=== PATIENT | female | born 1945 | race Caucasian/White ===

== ENCOUNTER 2017-04-05 05:54 | Inpatient (IN) | payer MEDICARE, OTHER ==
[~2017-04-05] VITALS: Ht 175.3 cm; Wt 84.3 kg
[~2017-04-05 05:54] MED LIST: BIOTIN PO; BISA10SU2 PR; CHOL500015 PO; CRANBERRY PO; ESTR0.5T PO; GABA-826 PO; HYDR-3245 PO; METH750T2 PO; MULT-516 PO; NAPR500T4 PO; OMEG1CAP39 PO; SENN1TAB7 PO; SLEEP AID PO; TURM500C7 PO; VITAMIN B12 PO
[2017-04-05] MEDS ORDERED: LACTATED RINGERS 1,000 ML IV SCH (07:18)
[2017-04-05] MEDS ORDERED: SODIUM CHLORIDE 0.9% 50 ML ONE (07:38)
[2017-04-05] MEDS ORDERED: ROPIvacaine/PF 0.2%, 20 ML ONE (07:38)
[2017-04-05] MEDS ORDERED: KETOROLAC 60 MG/2 ML ONE (07:38)
[2017-04-05] MEDS ORDERED: TRANEXAMIC ACID 100 MG/ML, 10ML ONE (07:38)
[2017-04-05] MEDS ORDERED: EPINEPHRINE 1 MG/ML, 1ML ONE (07:38)
[2017-04-05] MEDS ORDERED: ACETAMINOPHEN 500 MG TABLET ONE (07:42)
[2017-04-05] MEDS ORDERED: SCOPOLAMINE 1MG PATCH TD ONE (07:42)
[2017-04-05 07:50] VITALS: BP 123/78
[2017-04-05] MEDS ORDERED: FENTANYL PF 100 MCG/2ML ONE ×3 (07:50→10:00)
[2017-04-05] MEDS ORDERED: KETAMINE 10 MG/ML, 20ML ONE (07:50)
[2017-04-05] MEDS ORDERED: MIDAZOLAM 1 MG/ML, 2ML ONE (07:50)
[2017-04-05] MEDS ORDERED: SUCCINYLCHOLINE 20 MG/ML, 10ML ONE (08:03)
[2017-04-05] MEDS ORDERED: ROCURONIUM 10 MG/ML ONE (08:03)
[2017-04-05] MEDS ORDERED: ONDANSETRON 2MG/ML, 2ML ONE (08:03)
[2017-04-05] MEDS ORDERED: CEFAZOLIN 1,000 MG ONE (08:03)
[2017-04-05] MEDS ORDERED: NEOSTIGMINE 1 MG/ML, 10ML ONE (08:03)
[2017-04-05] MEDS ORDERED: GLYCOPYRROLATE 0.2MG/1ML, 5ML ONE (08:03)
[2017-04-05] MEDS ORDERED: DEXAMETHASONE 4 MG/ML, 5ML ONE (08:03)
[2017-04-05] MEDS ORDERED: LIDOCAINE-MPF 2% ,5ML ONE (08:40)
[2017-04-05] MEDS ORDERED: PROPOFOL 10 MG/ML, 20ML ONE (08:40)
[2017-04-05] MEDS ORDERED: PROMETHAZINE 25 MG/ML, 1ML IV PRN (09:00)
[2017-04-05] MEDS ORDERED: DIAZEPAM 5 MG/ML, 2ML IVPush PRN (09:00)
[2017-04-05] MEDS ORDERED: MEPERIDINE/PF 25MG/0.5ML IVPush PRN (09:00)
[2017-04-05] MEDS ORDERED: OXYcodone 5 MG/5 ML ORAL.SOL UDC PO PRN (09:00)
[2017-04-05] MEDS: D5%-0.45% NACL 1,000 ML IV SCH ×2 (09:38→16:37)
[2017-04-05] MEDS ORDERED: MAGNESIUM HYDROXIDE 8%, 30ML UDC PO PRN (10:00)
[2017-04-05] MEDS ORDERED: ACETAMINOPHEN 650 MG/20.3 ML UDC PO SCH (10:00)
[2017-04-05] MEDS ORDERED: PROMETHAZINE 25 MG/ML, 1ML IM PRN (10:00)
[2017-04-05] MEDS ORDERED: HYDROmorphone 1 MG/ML, 1ML IV PRN (10:00)
[2017-04-05] MEDS ORDERED: ONDANSETRON 2MG/ML, 2ML IV PRN (10:00)
[2017-04-05] MEDS ORDERED: ALUMINUM/MAG/SIMETHICONE 30 ML UDC PO PRN (10:00)
[2017-04-05] MEDS ORDERED: OXYcodone IR 5MG TABLET PO PRN (10:00)
[2017-04-05] MEDS ORDERED: SENNA/DOCUSATE TABLET PO PRN (10:00)
[2017-04-05] MEDS ORDERED: DIPHENHYDRAMINE 50 MG CAPSULE PO PRN (10:00)
[2017-04-05] MEDS ORDERED: DIAZEPAM 5 MG TABLET PO PRN (10:00)
[2017-04-05] MEDS: OXYcodone IR 5MG TABLET PO SCH ×3 (10:00→22:29)
[2017-04-05] MEDS ORDERED: BISACODYL 10 MG SUPP PR PRN (10:00)
[2017-04-05] MEDS ORDERED: PROMETHAZINE 12.5 MG SUPP PR PRN (10:00)
[2017-04-05] MEDS ORDERED: ZOLPIDEM 5MG TABLET PO PRN (10:00)
[2017-04-05] MEDS ORDERED: ONDANSETRON 4 MG TABLET PO PRN (10:00)
[2017-04-05] MEDS ORDERED: OXYcodone 5 MG/5 ML ORAL.SOL UDC ONE (10:01)
[2017-04-05] MEDS ORDERED: HYDROmorphone 1 MG/ML, 1ML ONE (10:01)
[2017-04-05] MEDS: FENTANYL PF 100 MCG/2ML IV PRN ×2 (10:11→10:24)
[2017-04-05] MEDS ORDERED: TRANEXAMIC ACID 1,000 MG in SODIUM CHLORIDE 0.9% 100 ML IVPB ONE (10:15)
[2017-04-05] MEDS: HYDROmorphone 1 MG/ML, 1ML IV PRN ×2 (10:27→10:40)
[2017-04-05] MEDS: TAMSULOSIN 0.4 MG CAP.ER.24H PO SCH (12:43)
[2017-04-05 13:49] VITALS: BP 140/66
[2017-04-05] MEDS: GABAPENTIN 300 MG CAPSULE PO SCH (16:36)
[2017-04-05] MEDS: CEFAZOLIN PMX 2GM/50ML 50 ML IVPB SCH (16:37)
[2017-04-05] MEDS: ASPIRIN 81 MG TABLET EC PO SCH (18:02)
[2017-04-05] MEDS: ACETAMINOPHEN 500 MG TABLET PO SCH (18:06)
[2017-04-05 20:00] VITALS: BP 124/64
[2017-04-05] MEDS: DOCUSATE 100 MG CAPSULE PO SCH (22:29)
[2017-04-06 00:01] VITALS: BP 100/61
[2017-04-06] MEDS: CEFAZOLIN PMX 2GM/50ML 50 ML IVPB SCH (00:23)
[2017-04-06] MEDS: GABAPENTIN 300 MG CAPSULE PO SCH ×2 (00:23→07:39)
[2017-04-06] MEDS: D5%-0.45% NACL 1,000 ML IV SCH (01:39)
[2017-04-06] MEDS: ACETAMINOPHEN 500 MG TABLET PO SCH ×2 (02:18→10:23)
[2017-04-06] MEDS: OXYcodone IR 5MG TABLET PO SCH ×4 (02:18→11:13)
[2017-04-06 03:21] VITALS: BP 95/58
[2017-04-06 05:09] LABS: HEMATOCRIT 36.4 % (34.6-47.8); HEMOGLOBIN 12.2 g/dL (11.7-16.4)
[2017-04-06] MEDS: ASPIRIN 81 MG TABLET EC PO SCH (05:43)
[2017-04-06] MEDS ORDERED: DEXAMETHASONE 4 MG/ML, 1ML IVPush SCH (06:00)
[2017-04-06 06:56] VITALS: BP 95/55
[2017-04-06] MEDS: TAMSULOSIN 0.4 MG CAP.ER.24H PO SCH (07:39)
[2017-04-06] MEDS: DOCUSATE 100 MG CAPSULE PO SCH (07:39)
[2017-04-06] MEDS ORDERED: MULTIVITAMINS/MINERALS TABLET PO SCH (09:00)
[2017-04-06] MEDS ORDERED: KETOROLAC 30 MG/1 ML IV SCH (10:00)
[2017-04-06] MEDS ORDERED: OXYC5CAP2 PO (10:19)
== END 2017-04-06 13:20 | disposition home or self-care (01) | DRG 470 ==
LOC: ORIP 05:54 → 4NOR 11:25 → DCLOUNGE 04-06 13:10
PROVIDERS: ADMIT Orthopaedic Surgery; ATTEND Orthopaedic Surgery
PROC: 0SRB0JZ Replacement of Left Hip Joint with Synthetic Substitute, Open Approach (ICD-10-PCS; principal; 2017-04-05 08:00)
DX: M16.12 Unilateral primary osteoarthritis, left hip (principal); M51.36 Other intervertebral disc degeneration, lumbar region
CPT/HCPCS: 36415; 72170; 85014; 85018; 86850; 86900; C1713; J0171; J0690; J1100; J1170; J1885; J2250; J2405; J2704; J2710; J2795; J3010; J3490; C1776; J0330; J7120

== ENCOUNTER → 2017-06-03 | Outpatient (CLI) | payer MEDICARE ==
[~2017-06-03] MED LIST changes: +OXYC5CAP2 PO
[2017-06-03 15:49] LABS: BASOPHILS # (AUTO) 0.02 x10^3/uL (0-0.1); BASOPHILS % (AUTO) 0 % (0-1); EOSINOPHILS # (AUTO) 0.25 x10^3/uL (0-0.4); EOSINOPHILS % (AUTO) 4 % (1-7); LYMPHOCYTES # (AUTO) 2.25 x10^3/uL (1-3.4); LYMPHOCYTES % (AUTO) 36 % (22-44); MD NO; MEAN CORPUSCULAR HEMOGLOBIN 31.7 pg (27.0-34.8); MEAN CORPUSCULAR HGB CONC 33.1 g/dL (32.4-35.8); MEAN CORPUSCULAR VOLUME 95.8 fL (80-100); MEAN PLATELET VOLUME 8.4 fL (7.4-10.4); MONOCYTES # (AUTO) 0.55 x10^3/uL (0.2-0.8); MONOCYTES % (AUTO) 9 % (2-9); NEUTROPHILS % (AUTO) 51 % (42-75); PLATELET COUNT 265 x10^3/uL (130-400); RED BLOOD COUNT 4.64 x10^6/uL (3.82-5.3); RED CELL DISTRIBUTION WIDTH 14.4 % (9.6-15.2)
[2017-06-03 15:54] LABS: ALANINE AMINOTRANSFERASE 32 U/L (12-78); ALBUMIN 4.2 g/dL (3.4-5.0); CHLORIDE 107 mmol/L (98-107)
[2017-06-03 16:19] LABS: ALKALINE PHOSPHATASE 117 U/L (45-117); ANION GAP 7 mmol/L (5-15); BILIRUBIN,TOTAL 0.3 mg/dL (0.2-1.0); CALCIUM 8.9 mg/dL (8.5-10.1); CREATININE 0.72 mg/dL (0.55-1.02); T4 (THYROXINE) 6.7 mcg/dL (4.8-13.9); TOTAL PROTEIN 7.5 g/dL (6.4-8.2)
[2017-06-03 16:22] LABS: FOLATE LEVEL > 20.0 ng/mL (3.1-17.5)
== END | disposition home or self-care (01) ==
LOC: CFH 14:08
PROVIDERS: ATTEND Psychiatry & Neurology Neurology
DX: N88.8 Other specified noninflammatory disorders of cervix uteri (principal); G57.82 Other specified mononeuropathies of left lower limb; G62.89 Other specified polyneuropathies; Z96.643 Presence of artificial hip joint, bilateral
CPT/HCPCS: 36415; 72170; 72195; 80053; 82607; 82746; 84436; 84481; 85025

== ENCOUNTER 2017-11-28 16:04 | Emergency (ER) | payer MEDICARE ==
[~2017-11-28] VITALS: Ht 175.3 cm; Wt 78.6 kg
[~2017-11-28 16:04] MED LIST changes: +NAPR-685 PO; -NAPR500T4 PO
[2017-11-28 16:14] VITALS: BP 126/79
[2017-11-28] MEDS ORDERED: FAMOTIDINE 20 MG/2 ML ONE (16:57)
[2017-11-28] MEDS ORDERED: PROCHLORPERAZINE 5 MG/ML, 2ML ONE (16:57)
[2017-11-28] MEDS ORDERED: SODIUM CHLORIDE 0.9% 1,000ML IVBOLUS ONE (17:00)
[2017-11-28] MEDS ORDERED: FAMOTIDINE 20 MG/2 ML IVP ONE (17:00)
[2017-11-28] MEDS ORDERED: PROCHLORPERAZINE 5 MG/ML, 2ML IVPush ONE (17:00)
[2017-11-28] MEDS ORDERED: SODIUM CHLORIDE FLUSH 10ML SYR IVF ONE (17:00)
[2017-11-28 17:01] LABS: BASOPHILS # (AUTO) 0.02 x10^3/uL (0-0.1); BASOPHILS % (AUTO) 0 % (0-1); EOSINOPHILS # (AUTO) 0.02 x10^3/uL (0-0.4); EOSINOPHILS % (AUTO) 0 % (1-7); INTERNATIONAL NORMALIZED RATIO 0.96 (0.93-1.1); LYMPHOCYTES # (AUTO) 1.03 x10^3/uL (1-3.4); LYMPHOCYTES % (AUTO) 9 % (22-44); MD NO; MEAN CORPUSCULAR HEMOGLOBIN 32.3 pg (27.0-34.8); MEAN CORPUSCULAR HGB CONC 33.8 g/dL (32.4-35.8); MEAN CORPUSCULAR VOLUME 95.7 fL (80-100); MEAN PLATELET VOLUME 9.1 fL (7.4-10.4); MONOCYTES # (AUTO) 0.58 x10^3/uL (0.2-0.8); MONOCYTES % (AUTO) 5 % (2-9); NEUTROPHILS # (AUTO) 9.89 x10^3/uL (1.8-6.8); NEUTROPHILS % (AUTO) 86 % (42-75); PLATELET COUNT 265 x10^3/uL (130-400); RED BLOOD COUNT 4.53 x10^6/uL (3.82-5.3); RED CELL DISTRIBUTION WIDTH 13.2 % (9.6-15.2)
[2017-11-28 17:04] LABS: ALANINE AMINOTRANSFERASE 46 U/L (12-78); ALBUMIN 3.8 g/dL (3.4-5.0); ANION GAP 7 mmol/L (5-15); CALCIUM 8.4 mg/dL (8.5-10.1); CHLORIDE 105 mmol/L (98-107); CREATININE 0.78 mg/dL (0.55-1.02)
[2017-11-28 17:06] LABS: ALKALINE PHOSPHATASE 122 U/L (45-117); BILIRUBIN,TOTAL 0.8 mg/dL (0.2-1.0); TOTAL PROTEIN 6.9 g/dL (6.4-8.2)
[2017-11-28] MEDS ORDERED: ONDANSETRON 2MG/ML, 2ML ONE (17:21)
[2017-11-28] MEDS ORDERED: ONDANSETRON 2MG/ML, 2ML IVPush ONE (18:00)
[2017-11-28 18:01] LABS: TROPONIN I < 0.015 ng/mL (0.000-0.045)
== END 2017-11-28 19:18 | disposition home or self-care (01) ==
LOC: ED 18:01
DX: K80.20 Calculus of gallbladder without cholecystitis without obstruction (principal)
CPT/HCPCS: 36415; 71045; 76700; 80053; 83690; 84484; 85025; 85610; 85730; 93005; 96361; 96374; 96375; 99285; J2405; J7030; S0028

== ENCOUNTER → 2017-12-09 | Outpatient (CLI) | payer MEDICARE ==
[~2017-12-09] MED LIST changes: +CARB-139 PO; +GLUC-149 PO; +NAPR500T8 PO; +ONDA4TAB13 SL; +PROG100C16 PO; +SUPER C COMPLEX PO; +TURMERIC/CURCUMIN PO; +VITA150T PO
[2017-12-09 13:36] LABS: MICROSCOPIC NOT IND
[2017-12-09 13:38] LABS: CULTURE INDICATED? NO
== END | disposition home or self-care (01) ==
LOC: STAR 12:38
PROVIDERS: ATTEND Surgery
DX: Z01.818 Encounter for other preprocedural examination (principal); R00.1 Bradycardia, unspecified
CPT/HCPCS: 81003; 93005

== ENCOUNTER 2017-12-13 05:59 | Day surgery (SDC) | payer MEDICARE ==
[~2017-12-13] VITALS: Ht 176.5 cm; Wt 76.3 kg
[2017-12-13] MEDS ORDERED: BUPIVACAINE/PF-EPI 0.5% 1:200K ONE (06:22)
[2017-12-13] MEDS ORDERED: LACTATED RINGERS 1,000 ML IV SCH (06:36)
[2017-12-13 06:42] VITALS: BP 122/87
[2017-12-13] MEDS ORDERED: LIDOCAINE-MPF 1%, 2ML INFIL ONE (07:00)
[2017-12-13] MEDS ORDERED: MIDAZOLAM 1 MG/ML, 2ML ONE (07:01)
[2017-12-13] MEDS ORDERED: FENTANYL PF 100 MCG/2ML ONE ×2 (07:01→08:40)
[2017-12-13] MEDS ORDERED: ACETAMINOPHEN 500 MG TABLET ONE (07:13)
[2017-12-13] MEDS ORDERED: SCOPOLAMINE PATCH, 1.5MG PATCH.TD72 TD ONE (07:13)
[2017-12-13] MEDS ORDERED: GABAPENTIN 300 MG CAPSULE ONE (07:13)
[2017-12-13] MEDS ORDERED: CEFAZOLIN 1,000 MG ONE (07:19)
[2017-12-13] MEDS ORDERED: ONDANSETRON 2MG/ML, 2ML ONE ×2 (07:19→18:41)
[2017-12-13] MEDS ORDERED: ROCURONIUM 10 MG/ML,10ML ONE (07:19)
[2017-12-13] MEDS ORDERED: DEXAMETHASONE 4 MG/ML, 1ML ONE (07:19)
[2017-12-13] MEDS ORDERED: PROPOFOL 10 MG/ML, 20ML ONE (07:19)
[2017-12-13] MEDS ORDERED: SUCCINYLCHOLINE 20 MG/ML, 10ML ONE (07:19)
[2017-12-13] MEDS ORDERED: hydrALAzine 20 MG/ML, 1ML IV PRN (08:00)
[2017-12-13] MEDS ORDERED: OXYcodone 5 MG/5 ML ORAL.SOL UDC PO PRN (08:00)
[2017-12-13] MEDS ORDERED: PROMETHAZINE 25 MG/ML, 1ML IV PRN (08:00)
[2017-12-13] MEDS ORDERED: HALOPERIDOL 5 MG/ML IV PRN (08:00)
[2017-12-13] MEDS ORDERED: MEPERIDINE/PF 25MG/0.5ML IVPush PRN (08:00)
[2017-12-13] MEDS ORDERED: ALBUTEROL SULFATE 2.5 MG/3 ML NPPB PRN (08:00)
[2017-12-13] MEDS ORDERED: LABETALOL 5MG/ML, 20ML IV PRN (08:00)
[2017-12-13] MEDS ORDERED: HYDROmorphone 1 MG/ML, 1ML IV PRN (08:00)
[2017-12-13] MEDS ORDERED: LORazepam 2 MG/ML, 1ML IVPush PRN (08:00)
[2017-12-13] MEDS ORDERED: OXYcodone 5 MG/5 ML ORAL.SOL UDC ONE (08:40)
[2017-12-13] MEDS: FENTANYL PF 100 MCG/2ML IV PRN ×4 (08:45→09:20)
[2017-12-13] MEDS ORDERED: LORazepam 2 MG/ML, 1ML ONE (09:07)
[2017-12-13] MEDS ORDERED: MEPERIDINE/PF 50 MG/ML ONE (09:33)
[2017-12-13] MEDS ORDERED: ONDANSETRON 2MG/ML, 2ML IVPush PRN (19:00)
== END 2017-12-13 19:10 | disposition home or self-care (01) ==
LOC: OUT 05:59
PROVIDERS: ATTEND Surgery
DX: K80.10 Calculus of gallbladder with chronic cholecystitis without obstruction (principal); Z87.39 Personal history of other diseases of the musculoskeletal system and connective tissue; Z98.890 Other specified postprocedural states; Z72.89 Other problems related to lifestyle
CPT/HCPCS: 47562; 88304; C1760; J0330; J0690; J1100; J2060; J2175; J2250; J2405; J2704; J3010; J7120

== ENCOUNTER 2018-09-16 09:50 | Emergency (ER) | payer MEDICARE ==
[~2018-09-16] VITALS: Ht 175.3 cm; Wt 76.2 kg
[~2018-09-16 09:50] MED LIST changes: +SENN-177 PO; -SENN1TAB7 PO
--- NOTE | 2018-09-16 10:13 | NUR ---
PT NOW IN ROOM FROM BATHROOM. PT ASKED TO CHANGE INTO GOWN
[2018-09-16] MEDS ORDERED: HYDROcodone/APAP 5/325 TABLET PO ONE (10:30)
--- NOTE | 2018-09-16 10:32 | NUR ---
72 Y/O FEMALE PRESENTS TO ED WITH C/O BACK AND LEG PAIN. PER PT "I HAVE CHRONIC BACK PAIN, BUT IT'S GOTTEN WORSE OVER THE LAST MONTH. THE LAST 5 DAYS IT'S BEEN GOING DOWN MY RIGHT LEG OVER MY HIP INTO MY GROIN. MY BACK HURTS WORSE TOO. I CAN'T EVEN PUT WEIGHT ON IT UNTIL ABOUT 10 AM EVERY MORNING." NO ACUTE DISTRESS NOTED. BEDSIDE. NO C/O TRAUMA.
[2018-09-16] MEDS ORDERED: HYDROcodone/APAP 5/325 TABLET ONE (10:50)
--- NOTE | 2018-09-16 10:52 | NUR ---
this rn in to ADMINISTER MEDICATION. PT OUT OF ROOM AT IMAGING.
--- NOTE | 2018-09-16 10:53 | NUR ---
BEDSIDE REPORT TO MONTY FERRER.
--- NOTE | 2018-09-16 10:55 | NUR ---
BEDSIDE REPORT FROM JAYLEN RN, PT BACK FROM IMAGING
--- NOTE | 2018-09-16 11:50 | NUR ---
PT TO MRI
--- NOTE | 2018-09-16 13:08 | NUR ---
PT RESTING IN [facility], AWAITING MRI RESULTS. CALL LIGHT WITHIN REACH
[2018-09-16 13:34] VITALS: BP 117/60
[2018-09-16 13:53] LABS: MICROSCOPIC AUTO
[2018-09-16 13:54] LABS: CULTURE INDICATED? YES
== END 2018-09-16 14:08 | disposition home or self-care (01) ==
LOC: ED 12:39
DX: M51.16 Intervertebral disc disorders with radiculopathy, lumbar region (principal); M48.061 Spinal stenosis, lumbar region without neurogenic claudication
CPT/HCPCS: 72110; 72141; 72148; 81001; 87086; 99284